=== PATIENT | female | born 1950 | race Caucasian/White ===

== ENCOUNTER → 2016-08-08 | Outpatient (CLI) | payer OTHER, MEDICARE ==
[2016-08-08 15:00] LABS: MEAN CORPUSCULAR HEMOGLOBIN 29.1 PG (26.0-34.0); MEAN CORPUSCULAR HGB CONC 33.4 g/dL (31.0-37.0); MEAN CORPUSCULAR VOLUME 87 FL (80-100); MEAN PLATELET VOLUME 8.8 FL (6.0-9.5); PLATELET COUNT 437 10^3uL (150-450); WHITE BLOOD COUNT 8.67 10^3uL (4.0-11.0)
[2016-08-08 15:32] LABS: BAND NEUTROPHILS % 0 % (0-6); SEGMENTED NEUTROPHILS % 68 % (51-67)
[2016-08-08 15:33] LABS: EOSINOPHILS % 0 % (0-4); LYMPHOCYTES # 1.8 #; MONOCYTES # 0.9 #; MONOCYTES % 11 % (3-11); RBC MORPH NORMAL (NORMAL); TOTAL CELLS COUNTED 100
[2016-08-08 15:34] LABS: ALBUMIN 4.4 g/dL (3.4-5.0); ANION GAP 17.1 MEQ/L (3-15); TOTAL PROTEIN 7.8 g/dL (6.4-8.5)
== END ==
LOC: LAB 14:49
PROVIDERS: ATTEND Internal Medicine Hematology & Oncology
DX: C50.112 Malignant neoplasm of central portion of left female breast (principal)
CPT/HCPCS: 36415; 80053; 83615; 83735; 84100; 85007; 85027

== ENCOUNTER → 2016-08-15 | Outpatient (CLI) | payer MEDICARE, OTHER ==
--- NOTE | 2016-08-15 12:59 | Diagnostic Imaging Report ---
PROCEDURE: CT chest pelvis with and abdomen with and without contrast. TECHNIQUE: Multiple contiguous axial images were obtained through the chest, abdomen and pelvis after uneventful bolus administration of intravenous contrast. Precontrast acquisitions were acquired through the abdomen. INDICATION: Breast CA. FINDINGS: CT chest: The lungs are well-aerated. There are no infiltrates. There are two parenchymal soft tissue nodules in the right upper lobe demonstrated on page 25 of series 5. These both measure approximately 5 mm and are noncalcified. No other parenchymal nodules are present. There are no infiltrates. There is good opacification of the aorta and pulmonary arteries following IV contrast injection. No evidence of aortic aneurysm. Pulmonary arteries appear normal. There is no mediastinal, hilar or internal mammary adenopathy. There has been axillary dissection with surgical change. No axillary adenopathy of pathologic size is present. No blastic rib lesions are seen. There are few blastic changes noted in the lower thoracic vertebral bodies which may be secondary to degenerative disc disease. IMPRESSION: 1. There are two nodules in the right upper lobe noncalcified, both measure approximately 5 mm. Followup as indicated. 2. Surgical changes from axillary dissection with no axillary adenopathy present. 3. Subtle bony changes along the thoracic spine which may be degenerative in nature. CT ABDOMEN AND PELVIS: There are two cysts present in the left lobe, one along the superior aspect and one along the inferior aspect of the left lobe. The inferior cyst measures 2 cm. The cyst superiorly measures 1.8 cm. There are no solid lesions. Gallbladder is absent. Pancreas appears normal. The spleen is normal. The adrenal glands are normal. The kidneys show no evidence of obstruction. No solid masses are seen with normal nephrogram following IV contrast. There is a simple cyst posteriorly in the mid left kidney renal cortex measuring 1.3 cm. Aorta and abdominal vessels enhance in a normal fashion. The vessels appear normal. There is oral contrast in the stomach and small bowel which appear normal. The colon shows a normal stool and gas pattern. There is some diverticulosis without evidence of diverticulitis. Uterus is absent. Bladder appears normal. No intra-abdominal adenopathy demonstrated. There is no free air or free fluid. Degenerative changes noted throughout the lumbar spine. No blastic lesions are seen in the lumbar spine or pelvis. IMPRESSION: 1. Two cysts noted in the left lobe of the liver. An additional cyst noted posteriorly in the left kidney. 2. No changes are seen to suggest metastatic disease within the abdomen and pelvis. Dictated by: Dictated on workstation # [id number]
--- NOTE | 2016-08-15 13:53 | Diagnostic Imaging Report ---
PROCEDURE: MR imaging of the brain with and without contrast. TECHNIQUE: Multiplanar, multisequence MR imaging of the brain was performed with and without contrast. INDICATION: Breast cancer. I have no priors. FINDINGS: There are no foci of abnormal diffusion restriction. There were no findings of an acute or subacute ischemic infarct. There is some pedunculated enhancing tissue in the posterior aspect of the right nasal cavity extending into the barb right lateral aspect of the nasopharynx. This tissue measures 1.4 cm AP long-axis with a transverse thickness of 4.0 mm. This is suggestive of a nasal cavity polyp. The orbits and paranasal sinuses appeared normal. The brain appeared normal. There is no intracranial hemorrhage, hydrocephalus, edema, mass, or mass effect. There is mild nonspecific white matter disease likely small-vessel sequelae not uncommonly found in patients of this age. There were no findings of focal or generalized edema, and there were no findings that were felt to be suggestive of the MRI evidence for intracranial involvement by metastatic disease. IMPRESSION: 1. No hemorrhage, infarct, or findings of metastasis. 2. Mild nonspecific white matter small-vessel sequelae. 3. Polypoid tissue in the far posterior aspect of the right nasal cavity posteroinferiorly and on the right suggests a polyp. 4. No other significant finding. Dictated by: Dictated on workstation # [id number]
== END ==
LOC: RAD 10:43
PROVIDERS: ATTEND Internal Medicine Hematology & Oncology
DX: C50.112 Malignant neoplasm of central portion of left female breast (principal)
CPT/HCPCS: 70553; 71260; 74178; A9579; Q9967

== ENCOUNTER 2016-08-31 11:39 | Outpatient (RCR) | payer MEDICARE, OTHER ==
[2016-08-31 12:07] LABS: MEAN CORPUSCULAR HEMOGLOBIN 29.8 PG (26.0-34.0); MEAN CORPUSCULAR HGB CONC 34.7 g/dL (31.0-37.0); MEAN CORPUSCULAR VOLUME 86 FL (80-100); MEAN PLATELET VOLUME 9.7 FL (6.0-9.5); PLATELET COUNT 274 10^3uL (150-450); WHITE BLOOD COUNT 22.35 10^3uL (4.0-11.0)
[2016-08-31 12:27] LABS: ALBUMIN 3.9 g/dL (3.4-5.0); ANION GAP 12.5 MEQ/L (3-15); CALCULATED IONIZED CALCIUM 4.1 mg/dL (3.8-4.6); MAGNESIUM* 2.1 mg/dL (1.6-2.3); TOTAL PROTEIN 6.6 g/dL (6.4-8.5)
[2016-08-31 12:32] LABS: BAND NEUTROPHILS % 5 % (0-6); EOSINOPHILS % 0 % (0-4); LYMPHOCYTES # 5.6 #; MONOCYTES # 0.9 #; MONOCYTES % 4 % (3-11); RBC MORPH NORMAL (NORMAL); SEGMENTED NEUTROPHILS % 66 % (51-67); TOTAL CELLS COUNTED 100
== END 2016-09-13 19:25 | disposition home or self-care (01) ==
LOC: LAB 11:39
PROVIDERS: ATTEND Internal Medicine Hematology & Oncology
DX: C50.112 Malignant neoplasm of central portion of left female breast (principal)
CPT/HCPCS: 36415; 80053; 83615; 83735; 84100; 85007; 85027